=== PATIENT | male | born 1990 | race African-American/Black ===

== ENCOUNTER 2016-09-13 12:40 | Emergency (ER) | payer MEDICAID ==
[2016-09-13 12:48] VITALS: BP 137/68; PULSE 70; RESP 16; TEMP 97
--- NOTE | 2016-09-13 13:22 | ED ---
General Adult HPI - General Chief complaint: Extremity Injury, Lower Stated complaint: L ANKLE PAIN Time Seen by Provider: 09/13/16 13:12 Source: patient, RN notes reviewed Mode of arrival: ambulatory Limitations: no limitations - History of Present Illness Initial comments: This is a 26-year-old male presents with left foot and ankle pain. Patient states he was playing basketball yesterday and came down on his foot wrong. Patient states he was not able to bear any weight to the left lower extremity yesterday but after rest, ice, elevation and some ibuprofen he is able to put some weight on the left lower extremity today. Patient has been using crutches to help with ambulation. Patient states there is still pain so he was concerned for fracture. Patient denies any numbness/tingling or weakness. Patient denies any recent fever, chills, shortness breath, chest pain, abdominal pain, nausea/vomiting/diarrhea, back pain, hematuria, headache, or visual changes, or any other complaints. - Related Data Previous Rx's Medication Instructions Recorded Hydrocodone/Acetaminophen [[place] 1 each PO Q4HR PRN #20 tab 08/16/14 5-325] Ibuprofen [Motrin] 800 mg PO Q8HR #30 tab 08/16/14 Sulfamethox-Tmp 800-160Mg [Bactrim 1 each PO Q12HR #20 tab 08/16/14 DS 800-160 mg] Sulfamethox-Tmp 800-160Mg [Bactrim 1 each PO Q12HR #14 tab 08/23/14 DS 800-160 mg] Allergies Allergy/AdvReac Type Severity Reaction Status Date / Time No Known Allergies Allergy Verified 09/13/16 12:48 Review of Systems ROS Statement: Those systems with pertinent positive or pertinent negative responses have been documented in the HPI. ROS Other: All systems not noted in ROS Statement are negative. Past Medical History Past Medical History: No Reported History History of Any Multi-Drug Resistant Organisms: None Reported Past Surgical History: No Surgical Hx Reported Past Psychological History: No Psychological Hx Reported Smoking Status: Never smoker Past Alcohol Use History: None Reported Past Drug Use History: None Reported General Exam - General Exam Comments Initial Comments: General: The patient is awake and alert, in no distress, and does not appear acutely ill. Neck: The neck is supple, there is no tenderness or JVD. Cardiovascular: There is a regular rate and rhythm. No murmur, rub or gallop is appreciated. Respiratory: Lungs are clear to auscultation, respirations are non-labored, breath sounds are equal. No wheezes, stridor, rales, or rhonchi. Musculoskeletal: There is tenderness to palpation over the lateral aspect of the left ankle with some mild swelling over the lateral malleolus and to the lateral aspect of the left foot. There is faint ecchymosis to this area as well. Patient has full range of motion, strength 5/5 and Sensation intact. Posterior tibial pulses and dorsalis pedis pulses are 2+ bilaterally. Capillary refill is normal at less than 2 seconds. Neurological: A&O x 3. CN II-XII intact, There are no obvious motor or sensory deficits. Coordination appears grossly intact. Speech is normal. Skin: Faint ecchymosis and mild swelling over the lateral aspect of the left ankle and foot. Skin is warm and dry and no rashes or lesions are noted. Psychiatric: Normal mood and affect. Limitations: no limitations Course Vital Signs 09/13/16 12:46 Temperature 97.0 F L Pulse Rate 70 Respiratory 16 Rate Blood Pressure 137/68 O2 Sat by Pulse 98 Oximetry Medical Decision Making - Medical Decision Making This is a 26-year-old male presents with left ankle pain and left foot pain since yesterday. On physical exam there is tenderness to palpation over the lateral aspect of the left ankle with some mild swelling over the lateral malleolus and to the lateral aspect of the left foot. There is faint ecchymosis to this area as well. Patient has full range of motion, strength 5/ 5 and Sensation intact. Posterior tibial pulses and dorsalis pedis pulses are 2 + bilaterally. Capillary refill is normal at less than 2 seconds. X-rays of the left ankle and left foot were done and reviewed showing: X-ray left ankle: Normal left ankle. X-ray left foot: Normal left foot. Report by Dr. Matthews. I discussed results with patient. I discussed ankle sprains. I discussed rest, ice, elevate and use Kin wrap for compression. I discussed use of Aircast as needed while up and walking. Patient already has crutches if needed. I discussed range of motion exercises. I discussed Tylenol and Motrin for pain. I discussed return parameters. I discussed occult fracture. Discussed that patient should follow up with PCP in one to 2 days or return to the [facility] for any worsening symptoms or any further concerns. Patient was receptive to this plan patient was discharged home. Disposition Clinical Impression: Ankle sprain Disposition: HOME SELF-CARE Condition: Good Instructions: Ankle Sprain (ED) Additional Instructions: Please rest, ice, elevate and use Kin wrap for compression. Please use Aircast while up and walking during the day. Please use crutches as needed. Please use Tylenol or Motrin for pain.If symptoms do not improve in the next 7 days repeat x-rays may be needed to rule out occult fracture. Please use medication as discussed. Please follow-up with family doctor in the next 2 days of symptoms have not improved. Please return to emergency room if the symptoms increase or worsen or for any other concerns. Referrals: None,Stated [Primary Care Provider] - 1-2 days Angeline Jauregui MD [STAFF PHYSICIAN] - 1-2 days Zack Simon III, MD [STAFF PHYSICIAN] - 1-2 days Time of Disposition: 14:11
--- NOTE | 2016-09-13 14:05 | XR ---
EXAMINATION TYPE: XR ankle complete LT DATE OF EXAM ORDERED: 09/13/2016 1:40 PM HISTORY: Pain. COMPARISON: None. FINDINGS: No fracture, dislocation or other acute osseous lesion is seen. There is no ankle joint ef fusion. IMPRESSION: NORMAL LEFT ANKLE.
--- NOTE | 2016-09-13 14:05 | XR ---
EXAMINATION TYPE: XR foot complete LT DATE OF EXAM ORDERED: 09/13/2016 1:40 PM HISTORY: Pain. COMPARISON: Previous study dated 03/06/2007. FINDINGS: No fracture, dislocation or other acute osseous lesion is seen. IMPRESSION: NORMAL LEFT FOOT.
== END 2016-09-13 14:17 | disposition home or self-care (01) ==
LOC: EC 12:40
DX: S93.402A Sprain of unspecified ligament of left ankle, initial encounter (principal); Y93.67 Activity, basketball
CPT/HCPCS: 99283

== ENCOUNTER 2019-11-03 11:30 | Emergency (ER) | payer MEDICAID ==
[2019-11-03 11:37] VITALS: TEMP 97.7
[2019-11-03] MEDS ORDERED: AMOXIC-POT CLAV 875-125MG 1 EACH TAB PO STA (11:44)
[2019-11-03] MEDS ORDERED: LIDOCAINE 1%-EPI 1:100,000 20 ML VIAL SQ STA (11:44)
--- NOTE | 2019-11-03 11:48 | ED ---
ENT HPI - General Chief complaint: Dental/Oral Stated complaint: Dental pain Time Seen by Provider: 11/03/19 11:38 Source: patient Mode of arrival: ambulatory Limitations: no limitations - History of Present Illness Initial comments: Patient is 29-year-old male presenting to emergency Department with a chief complaint of dental pain. Patient reports this started about 2 days ago. Patient reports yesterday he noticed an abscess on the right lower jaw near tooth #30. Patient denies any night sweats fevers or chills. Denies any facial swelling. Denies pain on the [place] mouth. Reports using Orajel with minimal improvement and taken ibuprofen for the pain. - Related Data Previous Rx's Medication Instructions Recorded Hydrocodone/Acetaminophen [[place] 1 each PO Q4HR PRN #20 tab 08/16/14 5-325] Ibuprofen [Motrin] 800 mg PO Q8HR #30 tab 08/16/14 Sulfamethox-Tmp 800-160Mg [Bactrim 1 each PO Q12HR #20 tab 08/16/14 DS 800-160 mg] Sulfamethox-Tmp 800-160Mg [Bactrim 1 each PO Q12HR #14 tab 08/23/14 DS 800-160 mg] Amoxicillin/Potassium Clav 1 tab PO Q12HR #20 tab 11/03/19 [Augmentin 875-125 Tablet] Allergies Allergy/AdvReac Type Severity Reaction Status Date / Time No Known Allergies Allergy Verified 11/03/19 11:37 Review of Systems ROS Statement: Those systems with pertinent positive or pertinent negative responses have been documented in the HPI. ROS Other: All systems not noted in ROS Statement are negative. Past Medical History Past Medical History: No Reported History History of Any Multi-Drug Resistant Organisms: None Reported Past Surgical History: No Surgical Hx Reported Past Psychological History: No Psychological Hx Reported Smoking Status: Never smoker Past Alcohol Use History: None Reported Past Drug Use History: None Reported General Exam Limitations: no limitations General appearance: alert, in no apparent distress Head exam: Present: atraumatic, normocephalic, normal inspection Eye exam: Present: normal appearance, PERRL, EOMI Pupils: Present: normal accommodation ENT exam: Present: normal exam, normal oropharynx (Periapical abscess noted in the right lower jaw.), mucous membranes moist Neck exam: Present: normal inspection, full ROM Respiratory exam: Present: normal lung sounds bilaterally. Absent: respiratory distress, wheezes, rales Cardiovascular Exam: Present: regular rate, normal rhythm, normal heart sounds Extremities exam: Present: normal inspection, full ROM Back exam: Present: normal inspection, full ROM Neurological exam: Present: alert, oriented X3 Psychiatric exam: Present: normal affect, normal mood Skin exam: Present: warm, dry, intact, normal color Course Vital Signs 11/03/19 11:35 Temperature 97.7 F Pulse Rate 71 Respiratory 20 Rate Blood Pressure 149/80 O2 Sat by Pulse 100 Oximetry Procedures - Incision & Drainage Consent Obtained: verbal consent Indication: Periapical abscess Site: oral Size (cm): 1 Anesthetic Used: lidocaine 1%, with epi Amount (mLs): 2 Sterile Field Used?: No Needle Aspiration Performed?: Yes Irrigation Performed?: No I&D Drainage Obtained: Pus, Blood Culture Obtained?: No Complications: bleeding Patient Tolerated Procedure: well, no complications - Nerve Block Consent Obtained: verbal consent Local Anesthetic Used: Lidocaine 1% Amount of anesthesia used: 2 Side: right Intraoral Nerve Block: inferior alveolar Procedure Successful: Yes Complications: none Patient Tolerated Procedure: well, no complications Medical Decision Making - Medical Decision Making Patient is a 29-year-old male presenting to emergency Department with chief complaint of dental pain. On exam patient appears to periapical abscess near Tooth #30. Inferior alveolar block was used with lidocaine with epi. I&D performed of the abscess. Patient tolerated procedure well. No signs of Glynn's angina. No facial swelling. Return parameters thoroughly discussed with patient was understanding and agreeable. He was started on Augmentin in the ED. Will be discharged with a 10 day course of Augmentin. Advised to follow-up with dentist. Case discussed with physician. Disposition Clinical Impression: Periapical abscess without sinus Disposition: HOME SELF-CARE Condition: Stable Instructions (If sedation given, give patient instructions): Dental Abscess (ED) Additional Instructions: Take prescribed medication as directed. Follow with a dentist. Return to emergency department if symptoms worsen. Prescriptions: Amoxicillin/Potassium Clav [Augmentin 875-125 Tablet] 1 tab PO Q12HR #20 tab Is patient prescribed a controlled substance at d/c from ED?: No Referrals: None,Stated [Primary Care Provider] - 1-2 days Time of Disposition: 12:31
[2019-11-03 12:46] VITALS: BP 139/98; PULSE 82; RESP 18
== END 2019-11-03 13:04 | disposition home or self-care (01) ==
LOC: EC 11:30
DX: K04.7 Periapical abscess without sinus (principal)
CPT/HCPCS: 41800; 99282